=== PATIENT | male | born 1950 | race Caucasian/White ===

== ENCOUNTER 2018-02-05 20:25 | Emergency (ER) | payer MEDICARE ==
[~2018-02-05] VITALS: Ht 180.3 cm; Wt 88.5 kg
--- OUTSIDE RECORDS SUMMARY | 2018-02-05 20:28 | XMS REPORT ---
Author Author [facility] Address Unknown Phone Unavailable Care Team Providers Care Sprinkler Installer Name Role Phone Unavailable Unavailable Problems This patient has no known problems. Allergies, Adverse Reactions, Alerts This patient has no known allergies or adverse reactions. Medications This patient has no known medications. Encounters Start Date/Time End Date/Time Encounter Type Admission Type Attending [facility] Facility Care Department Encounter ID 2018-04-05 00:00:00 2018-04-05 00:00:00 Outpatient [facility] [id number] 2018-02-02 00:00:00 2018-02-02 00:00:00 Outpatient [facility] [id number] 2017-08-16 13:26:58 2017-08-16 13:26:58 Outpatient [facility] [id number] 2017-07-06 11:52:12 2017-07-06 11:52:12 Outpatient [facility] [id number] 2017-06-23 00:00:00 2017-06-23 00:00:00 Outpatient [facility] [id number] 2017-06-21 16:42:25 2017-06-21 16:42:25 Outpatient [facility] [id number] 2017-06-12 00:00:00 2017-06-12 00:00:00 Outpatient [facility] [id number] 2017-02-16 09:23:57 2017-02-16 09:23:57 Outpatient [facility] [id number]
[2018-02-05 20:55] LABS: BASOPHILS # (AUTO) 0.1 (0.0-0.1); BASOPHILS % 0.7 % (0.0-1.0); EOSINOPHILS # (AUTO) 0.5 (0.0-0.4); EOSINOPHILS % 6.2 % (0.0-6.0); HEMATOCRIT 45.6 % (38.2-49.6); HEMOGLOBIN 15.8 g/dL (14.0-18.0); LYMPHOCYTES % 35.7 % (18.0-39.1); MEAN CORPUSCULAR HEMOGLOBIN 32.4 pg (28-32); MEAN CORPUSCULAR HGB CONC 34.6 g/dL (31-35); MEAN CORPUSCULAR VOLUME 93.6 fL (81-99); MONOCYTES # (AUTO) 1.1 (0.2-0.8); MONOCYTES % 12.5 % (4.4-11.3); NEUTROPHILS # (AUTO) 3.8 (2.1-6.9); NEUTROPHILS % 44.5 % (38.7-80.0); PLATELET COUNT 138 x10e3/uL (140-360); RED BLOOD COUNT 4.87 x10e6/uL (4.3-5.7); RED CELL DISTRIBUTION WIDTH 13.2 % (11.7-14.4)
[2018-02-05 21:12] LABS: ALBUMIN 3.6 g/dL (3.5-5.0); ANION GAP 12.3 mmol/L (8-16); CALCIUM 9.8 mg/dL (8.4-10.2); CREATININE, SERUM 1.32 mg/dL (0.72-1.25); POTASSIUM 4.3 mmol/L (3.5-5.1)
== END 2018-02-05 22:38 | disposition home or self-care (01) ==
LOC: ER 20:25
DX: Z00.00 Encounter for general adult medical examination without abnormal findings (principal); J44.9 Chronic obstructive pulmonary disease, unspecified; F31.9 Bipolar disorder, unspecified
CPT/HCPCS: 36415; 80053; 85025; 93005; 99282

== ENCOUNTER 2023-01-05 06:31 | Emergency (ER) | payer MEDICARE, BC ==
[~2023-01-05] VITALS: Ht 180.3 cm; Wt 88.5 kg
[2023-01-05] MEDS ORDERED: CEFUROXIME250 MG PO (06:52)
[2023-01-05] MEDS ORDERED: PYRIDIUM100 MG PO (06:52)
[2023-01-05 07:24] LABS: CLARITY,URINE CLOUDY (CLEAR); COLOR,URINE YELLOW (YELLOW); KETONES,URINE TRACE (NEGATIVE); LEUKOCYTE ESTERASE ,URINE NEGATIVE (NEGATIVE); NITRITE,URINE NEGATIVE (NEGATIVE); PROTEIN,URINE DIPSTICK 2+ (NEGATIVE); URINE UROBILINOGEN 0.2 mg/dL (0.2 - 1)
[2023-01-05 07:32] LABS: BACTERIA,URINE MODERATE /HPF; EPITHELIAL CELLS,URINE RARE /LPF; RBC,URINE >50 /HPF (0-5); WBC,URINE (MAN) 0-5 /HPF (0-5)
== END 2023-01-05 06:55 | disposition home or self-care (01) ==
LOC: ER 06:37
DX: R30.0 Dysuria (principal); N30.91 Cystitis, unspecified with hematuria; J44.9 Chronic obstructive pulmonary disease, unspecified; F31.9 Bipolar disorder, unspecified; Z95.5 Presence of coronary angioplasty implant and graft
CPT/HCPCS: 81001; 87086; 99283